=== PATIENT | female | born 1995 ===

== ENCOUNTER 2017-01-14 13:26 | Emergency (ER) | payer MEDICAID, OTHER ==
[2017-01-14 13:38] VITALS: BMI 17.2
[2017-01-14] MEDS ORDERED: Sodium Chloride 0.9% 1,000 ML IV STA (14:05)
--- NOTE | 2017-01-14 14:28 | ED PDOC ---
Arrival/HPI - General Chief Complaint: Abdominal Pain Time Seen by Provider: 01/14/17 13:44 Historian: Patient - History of Present Illness Narrative History of Present Illness (Text): 01/14/17 14:20 A 21 year old female, who denies any significant past medical history, presents to the emergency department complaining of nausea and mild abdominal discomfort earlier. Patient states after having a loose bowel movement she felt she couldn' t go again. Patient states her pain has subsided but nausea has not yet resolved. Patient reports she was recently taking Clindamycin for 8 days for lymphadenopathy of the neck but did not finish coarse of antibiotics because of an upset stomach. Patient denies any fever, vomiting, diarrhea, urinary symptoms , chest pain, shortness of breath or any other complaints. Patient is being followed by an ENT specialist for her lymphadenopathy. Time/Duration: Other (This morning) Symptom Course: Unchanged Quality: Other Context: Other Past Medical History - Provider Review Nursing Documentation Reviewed: Yes - Infectious Disease Hx of Infectious Diseases: None - Tetanus Immunization Tetanus Immunization: Unknown - Past Medical History Past Medical History: No Previous - Cardiac Hx Cardiac Disorders: No - Pulmonary Hx Respiratory Disorders: No - Neurological Hx Neurological Disorder: No - HEENT Hx HEENT Disorder: No - Renal Hx Renal Disorder: No - Endocrine/Metabolic Hx Endocrine Disorders: No - Hematological/Oncological Hx Blood Disorders: No - Integumentary Hx Dermatological Disorder: No - Musculoskeletal/Rheumatological Hx Musculoskeletal Disorders: No - Gastrointestinal Hx Gastrointestinal Disorders: No - Genitourinary/Gynecological Hx Genitourinary Disorders: No - Psychiatric Hx Depression: No Hx Emotional Abuse: No Hx Physical Abuse: No Hx Substance Use: No - Past Surgical History Past Surgical History: No Previous - Anesthesia Hx Anesthesia: No Hx Anesthesia Reactions: No Hx Malignant Hyperthermia: No - Suicidal Assessment Feels Threatened In Home Enviroment: No Family/Social History - Physician Review Nursing Documentation Reviewed: Yes Family/Social History: No Known Family HX Smoking Status: Never Smoked Hx Alcohol Use: No Hx Substance Use: No Hx Substance Use Treatment: No Allergies/Home Meds Allergies/Adverse Reactions: Allergies No Known Allergies Allergy (Verified 01/14/17 13:50) Review of Systems - Physician Review All systems were reviewed & negative as marked: Yes - Review of Systems Constitutional: absent: Fevers Respiratory: absent: SOB Cardiovascular: absent: Chest Pain Gastrointestinal: Abdominal Pain, Stool Changes (Loose bowel movement), Nausea. absent: Diarrhea, Vomiting Genitourinary Female: absent: Dysuria, Frequency, Hematuria, Urine Output Changes Physical Exam Vital Signs Reviewed: Yes Vital Signs Temp Pulse Resp BP Pulse Ox 01/14/17 15:39 98.1 F 94 H 16 115/77 100 01/14/17 13:36 97.9 F 102 H 18 125/82 100 Temperature: Afebrile Blood Pressure: Normal Pulse: Tachycardic Respiratory Rate: Normal Appearance: Positive for: Well-Appearing, Non-Toxic, Comfortable Pain Distress: None Mental Status: Positive for: Alert and Oriented X 3 - Systems Exam Head: Present: Atraumatic, Normocephalic Pupils: Present: PERRL Conjunctiva: Present: Normal Mouth: Present: Moist Mucous Membranes Pharnyx: Present: Normal. No: ERYTHEMA, EXUDATE Neck: Present: Normal Range of Motion Respiratory/Chest: Present: Clear to Auscultation, Good Air Exchange. No: Respiratory Distress, Accessory Muscle Use Cardiovascular: Present: Regular Rate and Rhythm, Normal S1, S2. No: Murmurs Abdomen: Present: Normal Bowel Sounds. No: Tenderness, Distention, Peritoneal Signs Back: Present: Normal Inspection Upper Extremity: Present: Normal Inspection. No: Cyanosis, Edema Lower Extremity: Present: Normal Inspection. No: Edema Neurological: Present: GCS=15, CN II-XII Intact, Speech Normal Skin: Present: Warm, Dry, Normal Color. No: Rashes Psychiatric: Present: Alert, Oriented x 3, Normal Insight, Normal Concentration Medical Decision Making ED Course and Treatment: 01/14/17 14:20 Impression: A 21 year old female with mild abdominal discomfort and nausea. Patient notes a loose bowel movement. Differential Diagnosis included but are not limited to: vs early gastroenteritis Plan: -- Labs -- Urinalysis -- Pepcid, IV fluids and Zofran -- Reassess and disposition Progress Notes: HCG is negative. Patient given zofran and tolerating po; abd is nontender with no symptoms at this time - will d/c. - Lab Interpretations Lab Results: Lab Results 01/14/17 14:32: Urine Color Yellow, Urine Appearance Turbid, Urine pH 5.5, Ur Specific [place] >= 1.030, Urine Protein 100 H, Urine Glucose (UA) Negative, Urine Ketones 15 H, Urine Blood Negative, Urine Nitrate Negative, Urine Bilirubin Negative, Urine Urobilinogen 0.2, Ur Leukocyte Esterase Trace H, Urine RBC Negative, Urine WBC 0 - 2, Ur Epithelial Cells 0 - 2, Amorphous Sediment Many, Urine Bacteria Few I have reviewed the lab results: Yes - Medication Orders Current Medication Orders: Discontinued Medications Al Hydrox/Mg Hydrox/Simethicone (Maalox Plus 30 Ml) 30 ml PO STAT STA Stop: 01/14/17 15:37 Last Admin: 01/14/17 15:52 Dose: Not Given Non-Admin Reason: Patient Refused Alprazolam (Xanax) 0.125 mg PO STAT STA PRN Reason: Protocol Stop: 01/14/17 15:38 Last Admin: 01/14/17 15:52 Dose: Not Given Non-Admin Reason: Patient Refused Ondansetron HCl (Zofran Odt) 4 mg PO STAT STA Stop: 01/14/17 14:18 Last Admin: 01/14/17 14:37 Dose: 4 MG - Scribe Statement The provider has reviewed the documentation as recorded by the Gricelda Rouse Provider Scribe Attestation: All medical record entries made by the Letyibhugo were at my direction and personally dictated by me. I have reviewed the chart and agree that the record accurately reflects my personal performance of the history, physical exam, medical decision making, and the department course for this patient. I have also personally directed, reviewed, and agree with the discharge instructions and disposition. Disposition/Present on Arrival - Present on Arrival Any Indicators Present on Arrival: No History of DVT/PE: No History of Uncontrolled Diabetes: No Urinary Catheter: No History of Decub. Ulcer: No History Surgical Site Infection Following: None - Disposition Have Diagnosis and Disposition been Completed?: Yes Diagnosis: Nausea Disposition: HOME/ ROUTINE Disposition Time: 16:45 Patient Plan: Discharge Condition: GOOD Discharge Instructions (ExitCare): Acute Diarrhea (ED), Acute Nausea and Vomiting (ED) Additional Instructions: Advance diet slowly as tolerated. Drink plenty of fluids. Return to the emergency department if any new concerning symptoms. Referrals: [facility] [place] - Follow up with primary Forms: SCHOOL NOTE
[2017-01-14 14:46] LABS: PH,URINE 5.5 (4.7-8.0); URINE BILIRUBIN NEGATIVE (NEGATIVE); URINE BLOOD NEGATIVE (NEGATIVE); URINE GLUCOSE (UA) NEGATIVE (NEGATIVE); URINE KETONE 15 mg/dL (NEGATIVE); URINE LEUKOCYTE ESTERASE TRACE Leu/uL (NEGATIVE); URINE PROTEIN 100 mg/dL (<30 mg/dL); URINE UROBILINOGEN 0.2 E.U./dL (<1 E.U./dL)
[2017-01-14 14:47] LABS: URINE APPEARANCE TURBID (CLEAR); URINE COLOR YELLOW (YELLOW)
[2017-01-14 14:56] LABS: URINE BACTERIA FEW (NEG); URINE EPITHELIAL CELLS 0 - 2 /hpf (0-5); URINE RBC NEGATIVE /hpf (0-2); URINE WBC 0 - 2 /hpf (0-6)
[2017-01-14 14:57] LABS: URINE AMORPHOUS SEDIMENT MANY
[2017-01-14] MEDS ORDERED: Alum-Mag Hydrox-Simethicone Susp (30 mL) PO STA (15:36)
[2017-01-14 15:39] VITALS: BP 115/77; PULSE 94; RESP 16; TEMP 98.1
[2017-01-14 17:05] VITALS: O2SAT 98
== END 2017-01-14 17:05 | disposition home or self-care (01) ==
LOC: ED 13:26
DX: R11.0 Nausea (principal)

== ENCOUNTER 2017-06-23 18:46 | Emergency (ER) | payer MEDICAID ==
[2017-06-23 19:00] VITALS: BMI 18.9
[2017-06-23 19:03] VITALS: TEMP 98.8; O2SAT 100
[2017-06-23] MEDS ORDERED: Sodium Chloride 0.9% 1,000 ML IV STA (20:29)
[2017-06-23 21:16] LABS: ALB/GLOB RATIO 1.6 (1.1-1.8); ALKALINE PHOSPHATASE 71 U/L (38-133); ALT/SGPT 37 U/L (7-56); AST/SGOT 33 U/L (15-39); BILIRUBIN,TOTAL 0.5 mg/dL (0.2-1.3); BLOOD UREA NITROGEN 18 mg/dL (7-21); CARBON DIOXIDE 25 mmol/L (21-33); CHLORIDE 103 mmol/L (98-107); GFR AFRICAN-AMERICAN > 60; GLUCOSE,RANDOM 91 mg/dL (70-110); SODIUM 144 mmol/L (132-148); TOTAL PROTEIN 8.9 g/dL (5.8-8.3)
[2017-06-23 21:24] LABS: BASO # 0.03 K/mm3 (0.0-2.0); BASO % 0.4 % (0.0-3.0); EOS # 0.2 (0.0-0.7); EOS % 1.8 % (1.5-5.0); GRAN # 6.14 (1.4-6.5); GRAN % 73.1 % (50.0-68.0); HEMATOCRIT 45.4 % (36.0-48.0); LYMPH # 1.5 (1.2-3.4); LYMPH % 18.2 % (22.0-35.0); MEAN CELL VOLUME 89.2 fl (80.0-105.0); MEAN CORPUSCULAR HEMOGLOBIN 30.3 pg (25.0-35.0); MEAN CORPUSCULAR HGB CONC 33.9 g/dl (31.0-37.0); MEAN PLATELET VOLUME 9.9 fl (7.0-11.0); MONO # 0.6 (0.1-0.6); MONO % 6.5 % (1.0-6.0); RED CELL DISTRIBUTION WIDTH 12.6 % (11.5-14.5); WHITE BLOOD COUNT 8.4 10^3/ul (4.5-11.0)
[2017-06-23 21:51] VITALS: BP 121/55; PULSE 81; RESP 16
--- NOTE | 2017-06-23 22:10 | CT ---
EXAM: CT Abdomen and Pelvis Without Intravenous Contrast EXAM DATE/TIME: 06/23/2017 8:29 PM CLINICAL HISTORY: 22 years old, female; Pain; Abdominal pain; Flank; Right; Additional info: Right flank pain TECHNIQUE: Axial computed tomography images of the abdomen and pelvis without intravenous contrast. All CT scans at this facility use one or more dose reduction techniques, viz.: automated exposure control; ma/kV adjustment per patient size (including targeted exams where dose is matched to indication; i.e. head); or iterative reconstruction technique. Coronal and sagittal reformatted images were created and reviewed. COMPARISON: There are no prior studies for comparison. FINDINGS: Lower thorax: Heart size is normal. Lung bases are clear ABDOMEN: Liver: unremarkable Gallbladder and bile ducts: unremarkable Pancreas: unremarkable Spleen: unremarkable Adrenals: unremarkable Kidneys and ureters: unremarkable Stomach and bowel: Stomach is almost empty. Rotation is normal. There are mildly distended small bowel loops in the left upper quadrant. There is fluid and air throughout the small bowel. There is no obstruction. Terminal ileum is unremarkable. Appendix is unremarkable. Colon is incompletely distended which limits evaluation. Appendix: See stomach and bowel PELVIS: Bladder: unremarkable Reproductive: Uterus and adnexal structures are unremarkable. ABDOMEN and PELVIS: Intraperitoneal space: Small amount of free fluid in the pelvis. There is no free air. Bones/joints: There are no acute osseous abnormalities Soft tissues: unremarkable Vasculature: Vascular structures are unremarkable. Lymph nodes: There is no pathologic adenopathy. IMPRESSION: No renal or ureteral stones or hydronephrosis; no CT findings of appendicitis; free fluid in the cul-de-sac physiologic versus recent cyst rupture; mild ileus, no obstruction
--- NOTE | 2017-06-23 22:43 | ED PDOC ---
Arrival/HPI - General Historian: Patient - History of Present Illness Symptom Onset: Gradual Symptom Course: Unchanged Activities at Onset: Rest, Light Context: Home <Homa Rey - Last Filed: 06/23/17 23:37> <Enrique Flanagan - Last Filed: 06/24/17 00:32> - General Chief Complaint: Back Pain Time Seen by Provider: 06/23/17 20:28 - History of Present Illness Narrative History of Present Illness (Text): 06/23/17 20:25 22 year old female who presents to the Emergency department with right-sided back pain. Patient states she has been experiencing mid-back pain radiating to her right lower back for a while, but has notes pain has worsened and become severe over the past few days. Patient denies any fever, chills, nausea, vomiting, diarrhea, constipation, urinary symptoms, neck pain, headache, dizziness, or any other complaints. Patient states she has been seen and evaluated for similar pain in the past. Patient states she has had only XRs performed and is concerned something is wrong with her kidney. Patient denies any chest pain or shortness pain, but does report back pain with deep inspiration. Patient states she took Ibuprofen at home with minimal improvement. (Homa Rey) Past Medical History - Provider Review Nursing Documentation Reviewed: Yes - Infectious Disease Hx of Infectious Diseases: None - Tetanus Immunization Tetanus Immunization: Unknown - Past Medical History Past Medical History: No Previous - Cardiac Hx Cardiac Disorders: No - Pulmonary Hx Respiratory Disorders: No - Neurological Hx Neurological Disorder: No - HEENT Hx HEENT Disorder: No - Renal Hx Renal Disorder: No - Endocrine/Metabolic Hx Endocrine Disorders: No - Hematological/Oncological Hx Blood Disorders: No - Integumentary Hx Dermatological Disorder: No - Musculoskeletal/Rheumatological Hx Musculoskeletal Disorders: No - Gastrointestinal Hx Gastrointestinal Disorders: No - Genitourinary/Gynecological Hx Genitourinary Disorders: Yes Other/Comment: DEPO SHOTS - Psychiatric Hx Depression: No Hx Emotional Abuse: No Hx Physical Abuse: No Hx Substance Use: No - Past Surgical History Past Surgical History: No Previous - Anesthesia Hx Anesthesia: No Hx Anesthesia Reactions: No - Suicidal Assessment Feels Threatened In Home Enviroment: No <Homa Rey - Last Filed: 06/23/17 23:37> Family/Social History - Physician Review Nursing Documentation Reviewed: Yes Family/Social History: Unknown Family HX Smoking Status: Never Smoked Hx Alcohol Use: No Hx Substance Use: No Hx Substance Use Treatment: No <Homa Rey - Last Filed: 06/23/17 23:37> Allergies/Home Meds <Homa Rey - Last Filed: 06/23/17 23:37> <PanchitoEnrique - Last Filed: 06/24/17 00:32> Allergies/Adverse Reactions: Allergies No Known Allergies Allergy (Verified 06/23/17 19:00) Review of Systems - Physician Review All systems were reviewed & negative as marked: Yes - Review of Systems Constitutional: Normal. absent: Fevers Eyes: Normal ENT: Normal Respiratory: Normal. absent: SOB, Cough Cardiovascular: Normal. absent: Chest Pain, Other Gastrointestinal: Normal. absent: Constipation, Diarrhea, Nausea Genitourinary Female: Normal. absent: Dysuria, Frequency, Hematuria, Urine Output Changes Musculoskeletal: Back Pain. absent: Neck Pain Skin: Normal. absent: Rash Neurological: Normal. absent: Headache, Dizziness Endocrine: Normal Hemo/Lymphatic: Normal Psychiatric: Normal <Homa Rey - Last Filed: 06/23/17 23:37> Physical Exam Vital Signs Reviewed: Yes Temperature: Afebrile Blood Pressure: Normal Pulse: Regular Respiratory Rate: Normal Appearance: Positive for: Well-Appearing, Non-Toxic, Comfortable Pain Distress: None Mental Status: Positive for: Alert and Oriented X 3 - Systems Exam Head: Present: Atraumatic, Normocephalic Pupils: Present: PERRL Extroacular Muscles: Present: EOMI Conjunctiva: Present: Normal Mouth: Present: Moist Mucous Membranes Neck: Present: Normal Range of Motion. No: Meningeal Signs, MIDLINE TENDERNESS , Paraspinal Tenderness Respiratory/Chest: Present: Clear to Auscultation, Good Air Exchange. No: Respiratory Distress, Accessory Muscle Use Cardiovascular: Present: Regular Rate and Rhythm, Normal S1, S2. No: Murmurs Abdomen: Present: Normal Bowel Sounds. No: Tenderness, Distention, Peritoneal Signs Back: Present: Paraspinal Tenderness (Right flank tenderness). No: CVA Tenderness, Midline Tenderness Upper Extremity: Present: Normal Inspection. No: Cyanosis, Edema Lower Extremity: Present: Normal Inspection. No: Edema Neurological: Present: GCS=15, CN II-XII Intact, Speech Normal Skin: Present: Warm, Dry, Normal Color. No: Rashes Psychiatric: Present: Alert, Oriented x 3, Normal Insight, Normal Concentration <Homa Rey Marisela - Last Filed: 06/23/17 23:37> Medical Decision Making <Homa Rey - Last Filed: 06/23/17 23:37> <PanchitoEnrique - Last Filed: 06/24/17 00:32> ED Course and Treatment: 06/23/17 20:25 Patient is nontoxic well appearing with stable vital signs presenting with right -sided back pain CBC within normal limits CMP within normal limits Urinalysis: mod blood, small leukocytes, 5-10wbcs. CAT scan : FINDINGS: Lower thorax: Heart size is normal. Lung bases are clear ABDOMEN: Liver: unremarkable Gallbladder and bile ducts: unremarkable Pancreas: unremarkable Spleen: unremarkable Adrenals: unremarkable Kidneys and ureters: unremarkable Stomach and bowel: Stomach is almost empty. Rotation is normal. There are mildly distended small bowel loops in the left upper quadrant. There is fluid and air throughout the small bowel. There is no obstruction. Terminal ileum is unremarkable. Appendix is unremarkable. Colon is incompletely distended which limits evaluation. Appendix: See stomach and bowel PELVIS: Bladder: unremarkable Reproductive: Uterus and adnexal structures are unremarkable. ABDOMEN and PELVIS: Intraperitoneal space: Small amount of free fluid in the pelvis. There is no free air. Bones/joints: There are no acute osseous abnormalities Soft tissues: unremarkable Vasculature: Vascular structures are unremarkable. Lymph nodes: There is no pathologic adenopathy. IMPRESSION: No renal or ureteral stones or hydronephrosis; no CT findings of appendicitis; free fluid in the cul-de-sac physiologic versus recent cyst rupture; mild ileus, no obstruction Patient reassessment: The patient is nontoxic well appearing no distress with stable vital signs will start patient on keflex for pyelonephritis. Discussed all results with patient in depth advised f/u with PMD and urologist. advised return if symptoms worsen,persist or if new symptoms develop. advised taking medications as prescribed. Impression: back pain, pyelonephritis Motrin every 6 hours as needed for pain keflex; 4 times daily x 10 days Follow up with primary care physician within the next 2 days Follow up with the Urologist within the next 2 days. Return immediately if symptoms worsen persist or if new symptoms develop: High fevers, increasing pain, vomiting, diarrhea or any other concerning symptoms develop (Azoia,Homa T) - Lab Interpretations Lab Results: 06/23/17 20:50 06/23/17 20:50 Lab Results 06/23/17 22:58: Urine Color Yellow, Urine Appearance Sl cloudy, Urine pH 6.5, Ur Specific [place] 1.025, Urine Protein Trace H, Urine Glucose (UA) Negative, Urine Ketones Negative, Urine Blood Moderate H, Urine Nitrate Negative, Urine Bilirubin Negative, Urine Urobilinogen 0.2, Ur Leukocyte Esterase Small H, Urine RBC 1 - 3, Urine WBC 5 - 10, Ur Epithelial Cells 4 - 5, Urine Bacteria Many 06/23/17 20:50: WBC 8.4, RBC 5.09, Hgb 15.4, Hct 45.4, MCV 89.2, MCH 30.3, MCHC 33.9, RDW 12.6, Plt Count 228, MPV 9.9, Gran % 73.1 H, Lymph % (Auto) 18.2 L, [place] % (Auto) 6.5 H, Eos % (Auto) 1.8, Baso % (Auto) 0.4, Gran # 6.14, Lymph # 1.5, [place] # 0.6, Eos # 0.2, Baso # 0.03 06/23/17 20:50: Sodium 144, Potassium 4.0, Chloride 103, Carbon Dioxide 25, Anion Gap 20, BUN 18, Creatinine 0.7, Est GFR ( Amer) > 60, Est GFR (Non- Af Amer) > 60, Random Glucose 91, Calcium 10.0, Total Bilirubin 0.5, AST 33, ALT 37, Alkaline Phosphatase 71, Total Protein 8.9 H, Albumin 5.4 H, Globulin 3.4, Albumin/Globulin Ratio 1.6 - RAD Interpretation Radiology Orders: 06/23/17 20:29 ABD & PELVIS W/O PO OR IV CONT [CT] Stat - Medication Orders Current Medication Orders: Discontinued Medications Cephalexin Monohydrate (Keflex) 500 mg PO STAT STA PRN Reason: Protocol Stop: 06/23/17 23:40 Last Admin: 06/24/17 00:10 Dose: Not Given Non-Admin Reason: Patient Refused Sodium Chloride (Sodium Chloride 0.9%) 1,000 mls @ 999 mls/hr IV .Q1H1M STA Stop: 06/23/17 21:29 Last Admin: 06/23/17 21:01 Dose: 999 mls/hr Ketorolac Tromethamine (Toradol) 30 mg IVP STAT STA Stop: 06/23/17 20:30 Last Admin: 06/23/17 21:01 Dose: 30 mg - Scribe Statement The provider has reviewed the documentation as recorded by the Scribe <Homa Rey - Last Filed: 06/23/17 23:37> - PA / FIRE INVESTIGATION MANAGER / Resident Statement MD/ has reviewed & agrees with the documentation as recorded. <Enrique Flanagan - Last Filed: 06/24/17 00:32> - Scribe Statement Kandi Mendez Provider Scribe Attestation: All medical record entries made by the Scribe were at my direction and personally dictated by me. I have reviewed the chart and agree that the record accurately reflects my personal performance of the history, physical exam, medical decision making, and the department course for this patient. I have also personally directed, reviewed, and agree with the discharge instructions and disposition. (Homa Rey) Disposition/Present on Arrival - Present on Arrival Any Indicators Present on Arrival: No History of DVT/PE: No History of Uncontrolled Diabetes: No Urinary Catheter: No History of Decub. Ulcer: No History Surgical Site Infection Following: None - Disposition Have Diagnosis and Disposition been Completed?: Yes Disposition Time: 23:04 Patient Plan: Discharge <Homa Rey - Last Filed: 06/23/17 23:37> <Enrique Flanagan - Last Filed: 06/24/17 00:32> - Disposition Diagnosis: Back pain, Pyelonephritis Disposition: HOME/ ROUTINE Patient Problems: Current Active Problems Problem Status Onset Back pain Acute Pyelonephritis Acute Condition: GOOD Discharge Instructions (ExitCare): Acute Pyelonephritis (ED) Additional Instructions: Motrin every 6 hours as needed for pain keflex; 4 times daily x 10 days Follow up with primary care physician within the next 2 days Follow up with the Urologist within the next 2 days. Return immediately if symptoms worsen persist or if new symptoms develop: High fevers, increasing pain, vomiting, diarrhea or any other concerning symptoms develop Prescriptions: Cephalexin Susp [Keflex] 500 mg PO QID #400 ml Referrals: Shirley Barrientos MD [Staff Provider] - Follow up with primary Erik Davis MD [Staff Provider] - Follow up with primary [facility] [place] [Outside] - Follow up with primary Forms: [employer] (Slovenian), WORK NOTE
[2017-06-23 23:01] LABS: PH,URINE 6.5 (4.7-8.0); URINE BILIRUBIN NEGATIVE (NEGATIVE); URINE BLOOD MODERATE (NEGATIVE); URINE GLUCOSE (UA) NEGATIVE (NEGATIVE); URINE KETONE NEGATIVE (NEGATIVE); URINE LEUKOCYTE ESTERASE SMALL Leu/uL (NEGATIVE); URINE PROTEIN TRACE mg/dL (<30 mg/dL); URINE UROBILINOGEN 0.2 E.U./dL (<1 E.U./dL)
[2017-06-23 23:16] LABS: URINE APPEARANCE SL CLOUDY (CLEAR); URINE COLOR YELLOW (YELLOW)
[2017-06-23 23:19] LABS: URINE BACTERIA MANY (NEG)
[2017-06-23] MEDS ORDERED: Cephalexin Susp 250 MG/5 ML PO STA (23:39)
== END 2017-06-24 00:15 | disposition home or self-care (01) ==
LOC: ED 18:46
DX: N12 Tubulo-interstitial nephritis, not specified as acute or chronic (principal); M54.9 Dorsalgia, unspecified
CPT/HCPCS: 74176; 80053; 81001; 85025; 96374; 99282; J1885; J7040